=== PATIENT | female | born 1970 | race Caucasian/White ===

== ENCOUNTER 2021-05-17 12:28 | Emergency (ER) | payer OTHER ==
[~2021-05-17] VITALS: Ht 160 cm; Wt 68.3 kg
[2021-05-17] MEDS ORDERED: METR-265 (12:49)
[2021-05-17] MEDS ORDERED: diphenhydrAMINE 25MG CAP PO ONE (14:25)
[2021-05-17 14:48] VITALS: BP 113/73
== END 2021-05-17 14:49 | disposition home or self-care (01) ==
LOC: M ED 12:28
DX: R22.0 Localized swelling, mass and lump, head (principal)